=== PATIENT | female | born 1990 | race Caucasian/White ===

== ENCOUNTER 2019-02-17 15:53 | Emergency (ER) | payer OTHER ==
[~2019-02-17] VITALS: Ht 160 cm; Wt 69.6 kg
[2019-02-17 15:58] VITALS: BP 120/74
--- NOTE | 2019-02-17 16:26 | NUR ---
Pt taken to bed 4.
--- NOTE | 2019-02-17 16:30 | NUR ---
BIB FAMILY W/ C/O INTERMITTENT LUQ PAIN RADIATING TO THE BACK WHEN COUGHING. WAS PRESCRIBED W/ VENTOLIN INHALER AND AMOXICILLIN ON 02/10/19 AT AN URGENT CARE. HX: DENIES . DENIES N/V/D; SKIN IS PINK/WARM/DRY; AAOX4 WITH EVEN AND STEADY GAIT; LUNGS CLEAR BL; HR EVEN AND REGULAR; PT DENIES ANY FEVER, CP, SOB, OR COUGH AT THIS TIME; PATIENT STATES PAIN OF 6/10 AT THIS TIME; VSS; PATIENT POSITIONED FOR COMFORT; HOB ELEVATED; BEDRAILS UP X2; BED DOWN. ER MD MADE AWARE OF PT STATUS.
[2019-02-17] MEDS ORDERED: KETOROLAC 30 MG/ML VIAL IM ONE (16:40)
[2019-02-17] MEDS ORDERED: DEXAMETHASONE 10 MG/ML VIAL IM ONE (16:40)
[2019-02-17 17:15] VITALS: BP 120/74
--- NOTE | 2019-02-17 17:16 | NUR ---
Patient discharged with v/s stable. Written and verbal after care instructions given and explained. Patient alert, oriented and verbalized understanding of instructions. Ambulatory with steady gait. All questions addressed prior to discharge. ID band removed. Patient advised to follow up with PMD. Rx of prednisone, promethazine and miralax given. Patient educated on indication of medication including possible reaction and side effects. Opportunity to ask questions provided and answered.
== END 2019-02-17 17:16 | disposition home or self-care (01) ==
LOC: MED 15:53
DX: M94.0 Chondrocostal junction syndrome [Tietze] (principal); K59.00 Constipation, unspecified; F17.210 Nicotine dependence, cigarettes, uncomplicated
CPT/HCPCS: 74018; 81002; 81025; 96372; 99283; J1100; J1885